=== PATIENT | male | born 1990 | race Caucasian/White ===

== ENCOUNTER 2023-09-10 07:52 | Emergency (ER) | payer OTHER, SELFPAY ==
[2023-09-10] VITALS (33 sets, daily range): BP systolic 117–145; BP diastolic 69–89; PULSE 43–73; RESP 11–22; TEMP 36.7; O2SAT 92–100
--- NOTE | 2023-09-10 07:45 | RT.EKG_ITS ---
APPROVED REPORT Exam: Resting ECG Reason for Exam: chest pain Patient Location: E HR:68 bpm ECG Measurements Heart Rate 68 AXIS AL 155 P 55 QRSd 106 QRS 0 QT 377 T -9 QTc 403 Conclusion Sinus arrhythmia...V-rate 55- 80, variation>10% Indeterminate axis...QRS axis indeterminate Inferior infarct, age indeterminate...Q>35mS, T neg, II III aVF
--- NOTE | 2023-09-10 08:14 | ED.GENADUL_ITS ---
Discharge Plan Disposition Patient Disposition: Home Discharge Details Clinical Impression: Chest pain Primary Care Provider: Lukasz Starkey ED Provider: Adrien Whitaker Home Meds and New Rx's Prescriptions: No Action No Known Home Meds Discharge Instructions Instructions: Chest Pain, Adult ED Additional Instructions: At this time no emergent findings were noted for your chest pain or discomfort. Please continue to rest today, stay well-hydrated, and monitor symptoms. Return immediately to the emergency department for any new or significant worsening of your symptoms otherwise follow-up with your primary care provider for further workup or testing if needed. Referrals: Lukasz Starkey MD [Primary Care Provider] - 5 days Discharge Data Discharge Date/Time-TO BE ENTERED AT DEPARTURE: 09/10/23 11:39 HPI General Mode of arrival: ambulatory . Date/Time Provider Initiated Documentation: 09/10/23 08:01 . Limitations to Documentation: no limitations . Information obtained by: patient and RN notes reviewed . History of Present Illness 33 year old M presents to the emergency department with the chief complaint of Chest pain, described as moderate, Quality is described as crushing and sharp, and is localized to the chest. Patient reports no radiation. Patient started experiencing this hour(s) (1) and it has been constant. No relieving factors improve symptom(s), No exacerbating factors reported . Patient notes diaphoresis and shortness of breath. Patient did receive the following treatments prior to arrival, none Related Data Home Medications ?Medication ?Instructions ?Recorded ?Confirmed Unknown [No Known Home Meds] 09/10/23 09/10/23 Allergies Allergy/AdvReac Type Severity Reaction Status Date / Time carbamazepine (From Tegretol) Allergy Severe Anaphylaxsi Unverified 09/10/23 0 8:27 s phenytoin sodium (From Allergy Severe Anaphylaxsi Unverified 09/10/23 08:27 Dilantin) s phenytoin sodium extended Allergy Severe Anaphylaxsi Unverified 09/10/23 08:27 (From Dilantin) s venom-honey bee (bee venom Allergy Severe Anaphylaxsi Unverified 09/10/23 08:27 (honey bee)) s General Stated Complaint: Chest Pain LOLIS: 2 Review of Systems Constitutional Constitutional: Denies chills, Denies fever(s) and Denies malaise Cardiovascular Cardiovascular: Reports as per HPI, Reports chest pain, Denies chest pain with activity, Denies syncope, Denies pedal edema, Denies irregular heart rhythm, Denies leg edema, Reports lightheadedness, Denies palpitations and Reports dyspnea Respiratory Respiratory: Denies cough, Denies hemoptysis and Reports dyspnea Gastrointestinal Gastrointestinal: Denies abdominal pain, Denies nausea and Denies vomiting Neurologic Neurologic: Denies syncope Psychiatric Psychiatric: Denies anxiety Endocrine Endocrine: Denies cold intolerance, Denies heat intolerance and Denies palpitations Exam Const General: cooperative, healthy appearing, comfortable, no acute distress, not diaphoretic and not ill appearing Nutritional Appearance: average body habitus Orientation: alert, awake and oriented x3 Limitations: mental status not altered Neck Neck: normal visual inspection, full ROM, trachea midline, supple and no anterior neck swelling Carotids: normal carotid upstroke and no bruits Chest Chest: normal inspection of the chest Resp Effort & Inspection: normal respiratory effort and able to speak in complete sentences Auscultation: clear to auscultation bilaterally Cardio Jugular venous pressure: no JVD Palpation: normal PMI Rate: regular rate Rhythm: regular rhythm Heart Sounds: S1 normal, S2 normal, no click, no gallops, no murmurs and no rubs Bruits: no abdominal aortic bruits and no carotid bruits Pulses: radial pulses present bilaterally 2+ GI Inspection: normal to inspection Palpation: soft, no aortic enlargement, no pulsatile masses and nontender Auscultation: normal bowel sounds Skin General skin exam: no rashes or lesions noted Neuro General: patient alert, patient awake, patient oriented x3, tone normal and moves all extremities Course Vital Signs Vital signs: Vital Signs Temperature 36.7 C 09/10/23 07:55 Pulse 68 09/10/23 07:55 Respiratory Rate 17 09/10/23 07:55 Blood Pressure 136/84 09/10/23 07:55 Pulse Oximetry 99 09/10/23 07:55 Temperature 36.7 C 09/10/23 07:55 Temperature Source Skin 09/10/23 07:55 Pulse 68 09/10/23 07:55 Respiratory Rate 17 09/10/23 07:55 Blood Pressure 136/84 09/10/23 07:55 Blood Pressure Position Sitting 09/10/23 07:55 Pulse Oximetry 99 09/10/23 07:55 Oxygen Delivery Method Room Air 09/10/23 07:55 Oxygen Flow Rate 0 09/10/23 07:55 Pain Level 7 09/10/23 07:55 Medical Decision Making Patient presenting to the emergency department for chief complaint of sudden onset of chest pain. Patient was removing things from the back of his work truck when all of a sudden he started having significant chest pressure stating it felt like he was punched in the chest, shortness of breath, clammy. Patient reports no previous episodes similar to this denies any significant family history beyond grandfather that had heart attacks at old age but no cardiac issues at young age for any family member he is aware of, states he is not on any medications, did not have any caffeine or coffee this morning, denies any blunt trauma. Physical exam is noncontributory. Will perform EKG labs and imaging for chest pain workup. Please see physician interpretation for full interpretation of EKG but upon my review Heart rate of 68, sinus rhythm, machine interpretation of inferior infarct indeterminate age but I do not appreciate any findings consistent with acute STEMI. Will continue to monitor and reassess. Reviewed patient's labs and CBC is overall unremarkable, negative D-dimer, CMP also unremarkable, troponin was nondetectable/less than 50, negative COVID flu RSV we will proceed with chest x-ray and delta troponin Chest x-ray shows no acute findings and delta troponin is negative. Will refer patient to primary care provider for reassessment and further workup if needed. After discussion of diagnosis and plan of care patient has no further needs, questions, or concerns and states clear understanding to return to the emergency department for any worsening symptoms. This documentation was generated using [employer] dictation system, please disregard any oddities of phrase or misspellings. Imaging Data Radiologic Study: Imaging: X-Ray Radiologist's impression: Exam(s) XR CHEST 2V PA LATERAL EXAM: XR CHEST 2V PA LATERAL CLINICAL HISTORY: Chest pain, shortness of breath TECHNIQUE: 2D digital imaging was performed. Two views. COMPARISON: No exams were available for comparison FINDINGS: HEART: Normal size. Aorta: Not dilated. PULMONARY VASCULATURE: Normal. MEDIASTINUM: Unremarkable. LUNGS: Clear. PLEURAL SPACE: No pleural effusion or pneumothorax. BONE:Unremarkable for age. SOFT TISSUES: Unremarkable. IMPRESSION: No acute abnormality. Lab Data Lab results reviewed: Yes I reviewed the patient's lab results. Quality:SDOH Health Related Social Needs: No Data to Display PFSH All Active Problems (Updated 09/10/23 @ 11:32 by Adrien Whitaker NP) Chest pain (Acute) Medical History (Updated 09/10/23 @ 11:32 by Adrien Whitaker NP) Alcoholism Epilepsy Social History Smoking/Tobacco Use Status: Current every day Tobacco Type: e-cigarettes Smoking risk assessment performed?: Yes Alcohol Intake: current Alcohol Intake frequency: a few times a month Alcohol type: beer and hard liquor Drug use: Occasionally Substance use type: marijuana Housing: house Do you feel safe at home: Yes Do you feel safe in your relationship?: Yes
[2023-09-10 08:15] LABS: Abs Immature Grans 0.02 10^3/uL (0.0-0.06); Absolute Basophil Count 0.03 10^3/uL (0.0-0.2); Absolute Eosinophil Count 0.07 10^3/uL (0.0-0.7); Absolute Lymphocyte Count 1.41 10^3/uL (1.2-3.4); Absolute Monocyte Count 0.46 10^3/uL (0.1-0.8); Basophils % 0.4 %; HCT 46.4 % (40.0-50.0); HGB 15.7 g/dL (13.5-17.5); Immature Grans % 0.3 %; Lymphocytes % 19.9 %; MCH 31.3 pg (27.0-33.0); MCHC 33.8 % (32.0-36.0); MCV 92 fL (80-95); MPV 9.8 fL (8.0-11.0); Monocytes % 6.5 %; Neutrophils % 71.9 %; Platelet Count 240 10^3/uL (130-400); RBC 5.02 10^6/uL (4.36-5.78); RDW 11.6 % (11.8-14.1); RDW-SD 39.2 fL; WBC 7.09 10^3/uL (4.4-10.8)
[2023-09-10] MEDS: Aspirin 81 MG CHEW 324 MG CH (08:30)
[2023-09-10 08:32] LABS: ALT 30 U/L (16-63); AST 20 U/L (15-37); Alkaline Phosphatase 79 U/L (46-116); BUN 13 mg/dL (7-18); Bilirubin, Total 0.63 mg/dL (0.2-1.0); Calcium 8.9 mg/dL (8.5-10.1); Chloride 105 mmol/L (98-107); Estimated GFR 102.55 (mL/min/1.73m2); Glucose 107 mg/dL (74-106); Sodium 143 mmol/L (136-145); Total Protein 7.6 g/dL (6.4-8.2)
[2023-09-10 08:34] LABS: Troponin I < 50 ng/L (< or =60)
--- NOTE | 2023-09-10 08:45 | DI.RAD_ITS ---
Exam(s) XR CHEST 2V PA LATERAL EXAM: XR CHEST 2V PA LATERAL CLINICAL HISTORY: Chest pain, shortness of breath TECHNIQUE: 2D digital imaging was performed. Two views. COMPARISON: No exams were available for comparison FINDINGS: HEART: Normal size. Aorta: Not dilated. PULMONARY VASCULATURE: Normal. MEDIASTINUM: Unremarkable. LUNGS: Clear. PLEURAL SPACE: No pleural effusion or pneumothorax. BONE:Unremarkable for age. SOFT TISSUES: Unremarkable. IMPRESSION: No acute abnormality. DATA REPOSITORY: RADIATION DOSE DELIVERED:
[2023-09-10 08:51] LABS: D-Dimer 168 ng/mlFEU (<500)
[2023-09-10 08:52] LABS: COVID-19 PCR Negative (Negative); Influenza A PCR Negative (Negative); Influenza B PCR Negative (Negative); RSV PCR Negative (Negative)
[2023-09-10 08:55] LABS: Source Nasopharynx
[2023-09-10 11:16] LABS: Troponin I < 50 ng/L (< or =60)
--- NOTE | 2023-09-10 11:36 | NUR.NOTE ---
Referral faxed to PCP for recheck chest pain, within 1 week. Nursing Note:
== END 2023-09-10 11:39 | disposition home or self-care (01) ==
PROVIDERS: Emergency Provider Nurse Practitioner Family
DX: R07.9 Chest pain, unspecified (principal); F17.290 Nicotine dependence, other tobacco product, uncomplicated
CPT/HCPCS: 80053; 87637; 93005; 99285; 71046; 83735; 84484; 85025; 85379; 93010; 99284